=== PATIENT | female | born 1975 | race Hispanic/Latino ===

== ENCOUNTER 2017-09-15 08:00 | Day surgery (SDC) | payer OTHER ==
[2017-09-14 15:51] LABS: BASOPHILS % (AUTO) 0.9 % (0.0-5.0); EOSINOPHILS % (AUTO) 2.9 % (0.0-8.0); HEMATOCRIT 37.4 % (36-48); LYMPHOCYTES % (AUTO) 27.8 % (21.0-51.0); MEAN CORPUSCULAR HGB CONC 34.4 g/dL (32.0-36.0); MEAN CORPUSCULAR VOLUME 81.3 fL (79-99); MONOCYTES % (AUTO) 7.1 % (3.0-13.0); NEUTROPHILS % (AUTO) 61.3 % (40.0-77.0); PLATELET COUNT (AUTO) 260 K/uL (130-400); RED CELL DISTRIBUTION WIDTH 13.8 % (11.0-15.5); WHITE BLOOD COUNT (AUTO) 4.4 K/uL (4.8-10.8)
[2017-09-14 15:59] LABS: CREATININE 0.6 mg/dL (0.5-1.5); POTASSIUM 4.1 mmol/L (3.5-5.1)
[2017-09-14 16:31] VITALS: BP 118/61
[~2017-09-15] VITALS: Ht 154.9 cm; Wt 79.7 kg
[2017-09-15] VITALS (14 sets, daily range): BP systolic 105–116; BP diastolic 53–67
[2017-09-15] MEDS ORDERED: LACTATED RINGERS 1000ML 1,000 ML IV ONE (08:49)
[2017-09-15] MEDS: CEFAZOLIN SODIUM 1 GM VIAL ONE ×2 (09:00→12:04)
[2017-09-15] MEDS ORDERED: EPINEPHRINE 1 MG/ML 30ML VIAL IJ ONE (11:01)
[2017-09-15] MEDS ORDERED: LIDOCAINE HCL-MPF 1% 5ML AMP IJ ONE (11:53)
[2017-09-15] MEDS ORDERED: ONDANSETRON HCL 4 MG/2 ML VIAL ONE (11:53)
[2017-09-15] MEDS ORDERED: DEXAMETHASONE SOD PHOSPHATE 10MG/ML 1ML VIAL ONE (11:54)
[2017-09-15] MEDS ORDERED: LIDOCAINE PF 2% 5ML ABBOJECT ONE (11:54)
[2017-09-15] MEDS ORDERED: ROCURONIUM BROMIDE 10MG/1ML 5ML VL ONE (11:54)
[2017-09-15] MEDS ORDERED: NEOSTIGMINE METHYLSULFATE 1MG/ML IV ONE (11:54)
[2017-09-15] MEDS ORDERED: PROPOFOL 10 MG/ML 20ML VIAL IV ONE (11:54)
[2017-09-15] MEDS ORDERED: FENTANYL CITRATE PF 50 MCG/1 ML 2ML VIAL ONE (11:54)
[2017-09-15] MEDS ORDERED: MIDAZOLAM HCL 1 MG/ML 2ML VIAL ONE (11:54)
[2017-09-15] MEDS ORDERED: OCTYL 2-CYANOACRYLATE 1 EACH TP ONE (12:40)
[2017-09-15] MEDS ORDERED: MEPERIDINE-PF 25 MG/ML SYG ONE (14:05)
[2017-09-15] MEDS ORDERED: KETOROLAC TROMETHAMINE 30MG/ML ONE (14:05)
== END 2017-09-15 15:55 | disposition home or self-care (01) ==
LOC: DAH 08:00
PROVIDERS: ATTEND Orthopaedic Surgery
DX: S46.221D Laceration of muscle, fascia and tendon of other parts of biceps, right arm, subsequent encounter (principal); X58.XXXD Exposure to other specified factors, subsequent encounter; Z68.32 Body mass index [BMI] 32.0-32.9, adult; Z79.899 Other long term (current) drug therapy; Z98.890 Other specified postprocedural states; E66.01 Morbid (severe) obesity due to excess calories
CPT/HCPCS: 29822; 29828; 36415; 80048; 84703; 85025; A4218; A4565; A4649 ×3; A4930; A6204; J0171; J0690; J1100; J1885; J2001; J2175; J2250; J2405; J2704; J2710; J3010; J3490 ×2; J7030; J7120

== ENCOUNTER 2019-08-27 12:02 | Emergency (ER) | payer OTHER | END 2019-08-27 13:59 | disposition home or self-care (01) | LOC: EDH 12:02 | DX: J10.1 Influenza due to other identified influenza virus with other respiratory manifestations (principal); Z98.890 Other specified postprocedural states ==

== ENCOUNTER 2021-05-21 19:56 | Emergency (ER) | payer BC, OTHER ==
[~2021-05-21] VITALS: Ht 152.4 cm; Wt 70.3 kg
[2021-05-21] MEDS ORDERED: MAG/ALUM/SIMETH 30 ML UDCUP PO ONE (20:30)
[2021-05-21] MEDS ORDERED: LIDOCAINE HCL 2% VISCOUS 15 ML UDCUP PO ONE (20:30)
[2021-05-21] MEDS ORDERED: DICYCLOMINE HCL 10 MG/5 ML ML PO ONE (20:30)
[2021-05-21] MEDS ORDERED: FAMOTIDINE 20MG VIAL IV ONE (20:30)
[2021-05-21 20:37] LABS: HEMATOCRIT 37.7 % (36-48); MEAN CORPUSCULAR HEMOGLOBIN 28.5 pg (27.0-33.0); MEAN CORPUSCULAR HGB CONC 34.5 g/dL (32.0-36.0); MEAN CORPUSCULAR VOLUME 82.7 fL (79-99); PLATELET COUNT (AUTO) 270 K/uL (130-400); RED BLOOD CELL COUNT(AUTO) 4.56 MIL/uL (4.00-5.50); RED CELL DISTRIBUTION WIDTH 12.9 % (11.0-15.5); WHITE BLOOD COUNT (AUTO) 9.5 K/uL (4.8-10.8)
[2021-05-21 20:46] LABS: CREATININE 0.8 mg/dL (0.5-1.5); POTASSIUM 3.5 mmol/L (3.5-5.1)
[2021-05-21 20:52] LABS: BAND NEUTROPHILS % (MANUAL) 2 % (0-2); EOSINOPHILS % (MANUAL) 3 % (1-6); LYMPHOCYTES % (MANUAL) 20 % (22-44); MAN.DIFF COMMENT-IMPRESSION MANUAL DIFFERENTIAL; MONOCYTES % (MANUAL) 2 % (2-9); REACTIVE LYMPHOCYTES 10 % (0-0); SEGMENTED NEUTROPHILS % 63 % (40-70)
[2021-05-21 20:53] LABS: ALBUMIN 3.8 g/dL (3.5-5.0); BILIRUBIN,TOTAL 0.4 mg/dL (0.2-1.0); TOTAL PROTEIN, SERUM 7.5 g/dL (6.0-8.3)
[2021-05-21 20:55] LABS: CRP QUANTITATIVE < 2.00 mg/L (0.00-9.0)
[2021-05-21 21:32] VITALS: BP 118/64
[2021-05-21] MEDS ORDERED: FAMO-136 PO (21:57)
== END 2021-05-21 22:20 | disposition home or self-care (01) ==
LOC: EDH 19:56
DX: K29.70 Gastritis, unspecified, without bleeding (principal); K21.9 Gastro-esophageal reflux disease without esophagitis; R07.89 Other chest pain; F17.210 Nicotine dependence, cigarettes, uncomplicated; E66.9 Obesity, unspecified; Z68.30 Body mass index [BMI] 30.0-30.9, adult
CPT/HCPCS: 36415; 71045; 80053; 83605; 84484; 85025; 86140; 93005; 96374; 99285; J3490

== ENCOUNTER 2022-10-03 08:53 | Emergency (ER) | payer BC, OTHER ==
[~2022-10-03] VITALS: Ht 152.4 cm; Wt 77.1 kg
[~2022-10-03 08:53] MED LIST: FAMO-136 PO
[2022-10-03 09:26] LABS: BASOPHILS % (AUTO) 0.4 % (0.0-5.0); EOSINOPHILS % (AUTO) 3.1 % (0.0-8.0); HEMATOCRIT 40.3 % (36-48); LYMPHOCYTES % (AUTO) 22.4 % (21.0-51.0); MEAN CORPUSCULAR HEMOGLOBIN 27.9 pg (27.0-33.0); MEAN CORPUSCULAR HGB CONC 34.2 g/dL (32.0-36.0); MEAN CORPUSCULAR VOLUME 81.4 fL (79-99); NEUTROPHILS % (AUTO) 58.9 % (40.0-77.0); PLATELET COUNT (AUTO) 230 K/uL (130-400); RED BLOOD CELL COUNT(AUTO) 4.95 MIL/uL (4.00-5.50); RED CELL DISTRIBUTION WIDTH 12.5 % (11.0-15.5); WHITE BLOOD COUNT (AUTO) 4.5 K/uL (4.8-10.8)
[2022-10-03] MEDS ORDERED: MORPHINE 4 MG SYG IVP ONE (09:30)
[2022-10-03] MEDS ORDERED: ONDANSETRON 4MG INJ IVP ONE (09:30)
[2022-10-03] MEDS ORDERED: 0.9%NACL 1000ML 1,000 ML IV ONE (09:30)
[2022-10-03] MEDS ORDERED: FAMOTIDINE 20MG VIAL IV ONE (09:30)
[2022-10-03 09:36] LABS: INR 0.94 (0.85-1.15); PROTHROMBIN TIME 10.3 SEC (9.6-11.6)
[2022-10-03 09:37] LABS: PARTIAL THROMBOPLASTIN TIME 28.3 SEC (26.3-35.5)
[2022-10-03 09:39] LABS: ALBUMIN 3.5 g/dL (3.5-5.0); CREATININE 0.7 mg/dL (0.5-1.5); POTASSIUM 3.7 mmol/L (3.5-5.1); TOTAL PROTEIN, SERUM 7.5 g/dL (6.0-8.3)
[2022-10-03 10:42] LABS: APPEARANCE,URINE CLEAR (CLEAR); BILIRUBIN,URINE NEGATIVE (NEGATIVE); COLOR,URINE YELLOW (YELLOW); GLUCOSE, URINE (UA) NEGATIVE (NEGATIVE); KETONES,URINE NEGATIVE (NEGATIVE); LEUKOCYTE ESTERASE ,URINE NEGATIVE Leu/uL (NEGATIVE); NITRATE,URINE NEGATIVE (NEGATIVE); OCCULT BLOOD,URINE NEGATIVE (NEGATIVE); PROTEIN,URINE 10 mg/dL (NEGATIVE); UROBILINOGEN,URINE 0.2 mg/dL (0.2-1.0)
[2022-10-03 10:47] LABS: HCG,QUALITATIVE URINE NEGATIVE (NEGATIVE)
[2022-10-03] MEDS ORDERED: L.AC1CAP6 PO (11:33)
[2022-10-03] MEDS ORDERED: ONDA4TAB10 PO (11:33)
[2022-10-03] MEDS ORDERED: DICY20TA2 PO (11:33)
[2022-10-03 11:35] LABS: BACTERIA,URINE RARE /HPF (None Seen); MUCUS,URINE RARE LPF (None Seen); RBC,URINE 0-1 /HPF (0-1); SQUAMOUS EPITHELIAL CELL,UR RARE /HPF (0-2)
[2022-10-03 11:42] VITALS: BP 122/65
== END 2022-10-03 12:00 | disposition home or self-care (01) ==
LOC: EDH 08:53
DX: K52.9 Noninfective gastroenteritis and colitis, unspecified (principal); E66.9 Obesity, unspecified
CPT/HCPCS: 99285; 74176; 96374; 96375; 96361; 82270; 80053; 85025; 85610; 85730; 81001; 81025; 36415; J3490; J7030; J2405; J2270

== ENCOUNTER 2024-08-22 09:47 | Emergency (ER) | payer SELFPAY ==
[~2024-08-22] VITALS: Ht 152.4 cm; Wt 81.6 kg
[~2024-08-22 09:47] MED LIST changes: +DICY20TA2 PO; +L.AC1CAP6 PO; +ONDA-243 PO
--- NOTE | 2024-08-22 10:22 | ERN ---
ED Note History of Present Illness Stated Complaint: DIZZINESS Chief Complaint: Dizzy/Light Headed Time Seen by MD: 10:03 Time Seen by Midlevel: 10:03 Dictation: 49-year-old female presents to the emergency department due to reported having some dizziness, nausea, vomiting, chills and generalized weakness that began yesterday. Patient states that she only had 1 episode of vomiting. There is no report of any bit of the household with similar symptoms. She states that yesterday she did have a complaint of double vision along with a generalized headache but which has since resolved. Patient states that she does have a history of needing seeing glasses but has not worn her glasses with a past year. However, she states that she is concerned due to stating that she has never had this type of feeling in the past before. Patient had that her mother of 71 years of age is under her care for the past year and feels that this might be contributing to the situation due to her having a history of anxiety. Upon initial evaluation, patient presents with a normal neurologic examination Allergies: Coded Allergies: No Known Drug Allergies (Unverified Allergy, Unknown, 08/29/14) Emergency Care CDL A DRIVER: None Home Meds Active Scripts Dicyclomine HCl (Bentyl) 20 Mg Tab, 20 MG PO TID PRN for ABDOMINAL PAIN, #15 TAB Prov:SATYA OCAMPO 10/03/22 Ondansetron (Ondansetron Odt) 4 Mg Tab.rapdis, 4 MG PO TID PRN for NAUSEA/ VOMITING, #15 TAB Prov:SATYA OCAMPO 10/03/22 L.acidoph & Paracasei,B.lactis (Probiotic) 1 Each Capsule, 1 EACH PO DAILY, #30 CAP Prov:FITTINGSATYA 10/03/22 Famotidine (Pepcid) 20 Mg Tablet, 20 MG PO BIDAC, #60 TAB Prov:MARK WINKLER 05/21/21 Past Medical History Past Medical History: Anxiety Additional Past Medical Hx: Tobacco abuse, obesity Surgical History: Other Surgical History Other: RIGHT SHOULDER SURGERY PSYCH History: anxiety Social History: Lives with family History: Not Applicable RN Note Reviewed/Agreed w/PFSH: Yes Review of System Dictation Abdomen/GI: Nausea and vomiting Neuro: Generalized weakness Initial Vital Sign VS Vital Signs Date Time Temp Pulse Resp B/P (MAP) Pulse Ox O2 Delivery O2 Flow Rate FiO2 08/22/24 09:48 96.6 58 20 159/88 99 Room Air 08/22/24 14:00 0 21 Physical Exam Dictation General: awake, alert, NAD Head/Face: Normocephalic, atraumatic Eyes: PERRL, EOMI ENT: Oral mucosa dry Neck: Trachea midline, supple Cardiovascular: RRR, no edema Respiratory: Symmetrical, non-labored Abdomen: Soft, non-tender, non-distended, no guarding. Skin: Warm, dry, good turgor, no rash MS/Extremity: Pulses equal, no cyanosis, neurovascular intact, FROM Neuro: COAx4, GCS 15, steady gait, Psych: Anxious, not suicidal, not homicidal Results (Laboratory/Radiology) Laboratory/Radiology Laboratory Tests Test 08/22/24 10:28 08/22/24 14:18 White Blood Count 8.3 K/uL (4.8-10.8) Red Blood Count 4.98 MIL/uL (4.00-5.50) Hemoglobin 13.9 g/dL (12.0-16.0) Hematocrit 42.4 % (36-48) Mean Corpuscular Volume 85.1 fL (79-99) Mean Corpuscular Hemoglobin 27.9 pg (27.0-33.0) Mean Corpuscular Hemoglobin Concent 32.8 g/dL (32.0-36.0) Red Cell Distribution Width 13.3 % (11.0-15.5) Platelet Count 286 K/uL (130-400) Mean Platelet Volume 10.1 fL (7.5-10.5) Immature Granulocyte % (Auto) 0.2 % (0-1) Neutrophils (%) (Auto) 75.4 % (40.0-77.0) Lymphocytes (%) (Auto) 16.8 % (21.0-51.0) L Monocytes (%) (Auto) 5.4 % (3.0-13.0) Eosinophils (%) (Auto) 1.7 % (0.0-8.0) Basophils (%) (Auto) 0.5 % (0.0-5.0) Neutrophils # (Auto) 6.3 K/uL (1.8-7.7) Lymphocytes # (Auto) 1.4 K/uL (1.0-4.8) Monocytes # (Auto) 0.5 K/uL (0.1-1.0) Eosinophils # (Auto) 0.14 K/uL (0.00-0.70) Basophils # (Auto) 0.04 K/uL (0.00-0.20) Absolute Immature Granulocyte (auto 0.02 K/uL (0-1) Nucleated Red Blood Cells 0.0 % (0.0-0.19) Sodium Level 142 mmol/L (136-145) Potassium Level 4.0 mmol/L (3.5-5.1) Chloride Level 105 mmol/L (101-111) Carbon Dioxide Level 30 mmol/L (21-32) Blood Urea Nitrogen 14 mg/dL (7-18) Creatinine 0.7 mg/dL (0.5-1.0) Glomerular Filtration Rate Calc 105 mL/min (>90) Random Glucose 138 mg/dL (70-105) H Total Calcium 9.3 mg/dL (8.5-10.1) Total Bilirubin 0.4 mg/dL (0.2-1.0) Aspartate Amino Transf (AST/SGOT) 12 U/L (10-37) Alanine Aminotransferase (ALT/SGPT) 22 U/L (12-78) Alkaline Phosphatase 129 U/L (50-136) Troponin I High Sensitivity 4 ng/L (4-50) Total Protein 7.3 g/dL (6.0-8.3) Albumin 3.8 g/dL (3.5-5.0) Urine Color LIGHT-YELLOW (YELLOW) Urine Appearance CLEAR (CLEAR) Urine pH 6.0 (5.0-8.0) Urine Specific [place] 1.011 (1.001-1.031) Urine Protein NEGATIVE mg/dL (NEGATIVE) Urine Glucose (UA) NEGATIVE mg/dL (NEGATIVE) Urine Ketones NEGATIVE mg/dL (NEGATIVE) Urine Occult Blood NEGATIVE (NEGATIVE) Urine Nitrate NEGATIVE (NEGATIVE) Urine Bilirubin NEGATIVE mg/dL (NEGATIVE) Urine Urobilinogen 0.2 mg/dL (0.2-1.0) Urine Leukocyte Esterase NEGATIVE Romi/uL Urine HCG, Qualitative NEGATIVE (NEGATIVE) Labs Reviewed?: Yes EKG Comment: EKG with a ventricular rate of 67 beats per minute PA 133 MS QRS 108 MS QT 387 MS No STEMI. X-RAY Comment: Chest x-ray one view as no infiltrates as interpreted by me. ED Course ED Course Orders Procedure Category Date Status Time Troponin I High LAB 08/22/24 Complete Sensitivity 10:17 Cbc With Differential LAB 08/22/24 Complete 10:17 Comprehensive LAB 08/22/24 Complete Metabolic Panel 10:17 Urinalysis Profile LAB 08/22/24 Complete 10:17 12 Lead Ekg Tracing- EKG 08/22/24 Complete Technical 10:17 ,Urine Test LAB 08/22/24 Complete 10:17 Chest 1vw RAD 08/22/24 Resulted 10:26 Vital Signs Date Time Temp Pulse Resp B/P (MAP) Pulse Ox O2 Delivery O2 Flow Rate FiO2 08/22/24 15:01 96.6 63 18 121/63 100 Room Air* 0 21 08/22/24 14:00 63 18 129/65 100 Room Air* 0 21 08/22/24 09:48 96.6 58 20 159/88 99 Room Air HEART Score Response (Comments) Value History: Low suspicion (0) 0 EKG: Normal 0 Age: 45-65yrs (+1) 1 Risk Factors: No known risk factors (0) 0 Initial Troponin: Normal limit (0) 0 HEART Score Risk: Low Risk for MACE (1-3) Total 1 Medical Decision Making MDM MDM: Differential diagnosis: Dizziness, generalized weakness, electrolyte imbalance. Rationale: Tests considered and ordered secondary to shared decision making include: Previous outside records reviewed: Old ER visits. Risk of complication and/or morbidity or mortality of patient management: None Medications-Per medication reconciliation Need for hospitalization: Patient does not meet criteria for hospitalization. Need for emergency major/minor surgery: No There are no social concerns with this patient. Prescription drug management Prescriptions will include symptomatic care Patient's prior external medical records from other ER visits were reviewed by me as indicated. Prior testing and results from previous visits were reviewed. Prior tests were taken into account with medical decision making and resource utilization, independent historian/historians were used to obtain complete medical history. I independently interpreted the test that were performed, results were reviewed by me and considered findings on radiology if ordered. Medical management and examination interpretation discussions were had by me with other qualified healthcare professionals as indicated for the patient's care. NIH STROKE SCALE: NIH STROKE SCALE Response (Comments) Value Level of Consciousness Alert 0 Ask patient month and their age Answers both correct 0 Command to open eyes, make fist and let go Obeys both correct 0 Best gaze (horizontal eye movement) Normal 0 Visual Field Testing No Visual Field Loss 0 Facial Paresis Normal / Symmetrical 0 Motor Function - Left Arm Normal 0 Motor Function - Right Arm Normal 0 Motor Function - Left Leg Normal 0 Motor Function - Right Leg Normal 0 Limb Ataxia No Ataxia 0 Sensory-pin prick to arms, legs, trunk and face Normal 0 Best Language (describe picture, name items and read) No Aphasia 0 Dysarthria (read several words) Normal Articulation 0 Extinction and Inattention Normal 0 Total 0 DX & DISP Disposition: Discharge Departure Impression: Primary Impression: Dizziness Additional Impression: History of anxiety Condition: Stable Referrals: NONE (PCP) Time of Disposition: 15:11 FARNAZ DUMONT Aug 22, 2024 10:22 ZENAIDA ROCK DO Aug 23, 2024 07:43
[2024-08-22 10:35] LABS: BASOPHILS # (AUTO) 0.04 K/uL (0.00-0.20); BASOPHILS % (AUTO) 0.5 % (0.0-5.0); EOSINOPHILS # (AUTO) 0.14 K/uL (0.00-0.70); EOSINOPHILS % (AUTO) 1.7 % (0.0-8.0); HEMATOCRIT 42.4 % (36-48); IMMATURE GRANULOCYTE ABSOLUTE 0.02 K/uL (0-1); LYMPHOCYTES # (AUTO) 1.4 K/uL (1.0-4.8); LYMPHOCYTES % (AUTO) 16.8 % (21.0-51.0); MEAN CORPUSCULAR HEMOGLOBIN 27.9 pg (27.0-33.0); MEAN CORPUSCULAR HGB CONC 32.8 g/dL (32.0-36.0); MEAN CORPUSCULAR VOLUME 85.1 fL (79-99); MONOCYTES # (AUTO) 0.5 K/uL (0.1-1.0); MONOCYTES % (AUTO) 5.4 % (3.0-13.0); NEUTROPHILS # (AUTO) 6.3 K/uL (1.8-7.7); NEUTROPHILS % (AUTO) 75.4 % (40.0-77.0); PLATELET COUNT (AUTO) 286 K/uL (130-400); RED BLOOD CELL COUNT(AUTO) 4.98 MIL/uL (4.00-5.50); RED CELL DISTRIBUTION WIDTH 13.3 % (11.0-15.5); WHITE BLOOD COUNT (AUTO) 8.3 K/uL (4.8-10.8)
[2024-08-22 10:47] LABS: CREATININE 0.7 mg/dL (0.5-1.0)
[2024-08-22 10:51] LABS: ALBUMIN 3.8 g/dL (3.5-5.0); BILIRUBIN,TOTAL 0.4 mg/dL (0.2-1.0); TOTAL PROTEIN, SERUM 7.3 g/dL (6.0-8.3)
--- NOTE | 2024-08-22 11:59 | EKG ---
[facility] Test Date: 2024-08-22 Test Time: 11:58:01 Pat Name: KEITH JAMIL Department: ED Room: Gender: F Client Account Representative: [id number] : 1975 Requested By: FARNAZ DUMONT Order Number: [id number] Reading MD: Vick Aleman Measurements Intervals [place] Rate: 53 P: 4 RI: 154 QRS: 35 QRSD: 89 T: 3 QT: 403 QTc: 380 Interpretive Statements Sinus rhythm Probable anteroseptal infarct, old Compared to ECG 05/21/2021 19:46:36 No significant changes Electronically Signed On 08-23-2024 12:18:44 [employer]OTTON SAMPLER by Vick Aleman Please click the below link to view image of tracing.
--- NOTE | 2024-08-22 12:19 | HMCIMG ---
CHEST 1VW REASON: Cardiac COMPARISON: 05/21/2021 FINDINGS: Single view of the chest was obtained. Lungs are clear. Heart size is normal. There is no pulmonary vascular congestion. Mediastinum and bony thorax appear unremarkable. IMPRESSION: 1. Normal single view chest x-ray.
[2024-08-22 14:59] LABS: APPEARANCE,URINE CLEAR (CLEAR); BILIRUBIN,URINE NEGATIVE (NEGATIVE); COLOR,URINE LIGHT-YELLOW (YELLOW); GLUCOSE, URINE (UA) NEGATIVE (NEGATIVE); KETONES,URINE NEGATIVE (NEGATIVE); LEUKOCYTE ESTERASE ,URINE NEGATIVE Leu/uL (NEGATIVE); NITRATE,URINE NEGATIVE (NEGATIVE); OCCULT BLOOD,URINE NEGATIVE (NEGATIVE); PROTEIN,URINE NEGATIVE (NEGATIVE); UROBILINOGEN,URINE 0.2 mg/dL (0.2-1.0)
[2024-08-22 15:01] VITALS: BP 121/63; PULSE 63; RESP 18; TEMP 96.7; O2SAT 100
[2024-08-22 15:02] LABS: ADD UA MICROSCOPIC NO
[2024-08-22 15:03] LABS: HCG,QUALITATIVE URINE NEGATIVE (NEGATIVE)
== END 2024-08-22 15:19 | disposition home or self-care (01) ==
LOC: EDH 09:47
DX: R42 Dizziness and giddiness (principal); F41.9 Anxiety disorder, unspecified; E66.9 Obesity, unspecified; Z79.899 Other long term (current) drug therapy; Z98.890 Other specified postprocedural states
CPT/HCPCS: 36415; 71045; 80053; 81003; 81025; 84484; 85025; 93005; 99285